=== PATIENT | male | born 1980 | race African-American/Black ===

== ENCOUNTER 2022-02-24 09:55 | Emergency (ER) | payer MEDICAID ==
[~2022-02-24] VITALS: Ht 177.8 cm; Wt 77.0 kg
[2022-02-24 10:01] VITALS: BP 119/73
== END 2022-02-24 12:52 | disposition home or self-care (01) ==
LOC: ER 09:55
DX: Z76.0 Encounter for issue of repeat prescription (principal)
CPT/HCPCS: 99281